=== PATIENT | male | born 1955 | race Hispanic/Latino ===

== ENCOUNTER 2021-07-03 15:15 | Emergency (ER) | payer MEDICARE, OTHER ==
[~2021-07-03] VITALS: Ht 170.2 cm; Wt 77.6 kg
[2021-07-03 16:02] LABS: BASOPHILS % (AUTO) 0.2 % (0.0-5.0); HEMATOCRIT 47.4 % (42-54); LYMPHOCYTES % (AUTO) 7.8 % (21.0-51.0); MEAN CORPUSCULAR HEMOGLOBIN 27.7 pg (27.0-33.0); MEAN CORPUSCULAR HGB CONC 32.3 g/dL (32.0-36.0); MEAN CORPUSCULAR VOLUME 85.9 fL (79-99); MONOCYTES % (AUTO) 1.3 % (3.0-13.0); NEUTROPHILS % (AUTO) 90.3 % (40.0-77.0); PLATELET COUNT (AUTO) 278 K/uL (130-400); RED BLOOD CELL COUNT(AUTO) 5.52 MIL/uL (4.50-6.20); RED CELL DISTRIBUTION WIDTH 14.4 % (11.0-15.5); WHITE BLOOD COUNT (AUTO) 8.4 K/uL (4.8-10.8)
[2021-07-03 16:04] LABS: APPEARANCE,URINE Clear (CLEAR); BILIRUBIN,URINE Negative (NEGATIVE); COLOR,URINE Yellow (YELLOW); GLUCOSE, URINE (UA) Negative (NEGATIVE); KETONES,URINE Negative (NEGATIVE); LEUKOCYTE ESTERASE ,URINE Trace (NEGATIVE); NITRATE,URINE Negative (NEGATIVE); OCCULT BLOOD,URINE Negative (NEGATIVE); PH,URINE 7.5 (5.0-8.0); PROTEIN,URINE Negative (NEGATIVE); UROBILINOGEN,URINE 0.2 mg/dL (0.2-1.0)
[2021-07-03] MEDS: KETOROLAC 15MG/ML VIAL (15MG/ML) IV ONE ×2 (16:06→16:49)
[2021-07-03] MEDS: PROMETHAZINE HCL 25 MG/ML 1ML AMPULE IM ONE ×2 (16:06→16:52)
[2021-07-03] MEDS: 0.9% NACL 500ML IV.SOLN 500 ML IV SCH ×2 (16:07→16:52)
[2021-07-03] MEDS: CYCLOBENZAPRINE HCL 10 MG TABLET PO ONE ×2 (16:10→16:49)
[2021-07-03 16:14] LABS: BACTERIA,URINE None Seen /HPF (None Seen); RBC,URINE None Seen /HPF (0-1); SQUAMOUS EPITHELIAL CELL,UR 0-2 /HPF (0-2); WBC,URINE 0-1 /HPF (0-1)
[2021-07-03 16:23] LABS: CREATININE 0.8 mg/dL (0.5-1.5); POTASSIUM 3.8 mmol/L (3.5-5.1)
[2021-07-03 16:27] LABS: BILIRUBIN,TOTAL 0.2 mg/dL (0.2-1.0); TOTAL PROTEIN, SERUM 8.4 g/dL (6.0-8.3)
[2021-07-03] MEDS ORDERED: NAPR-1180 PO (17:25)
[2021-07-03] MEDS ORDERED: CYCL10TA16 PO (17:25)
[2021-07-03] MEDS ORDERED: RIZA10TA23 PO (17:25)
[2021-07-03 18:18] VITALS: BP 119/69
== END 2021-07-03 18:18 | disposition home or self-care (01) ==
LOC: EDH 15:15
DX: G43.109 Migraine with aura, not intractable, without status migrainosus (principal); I10 Essential (primary) hypertension; Z79.899 Other long term (current) drug therapy; Z98.890 Other specified postprocedural states
CPT/HCPCS: 36415; 70450; 80053; 81001; 85025; 86140; 96372; 96374; 99285; J1885; J2550; J7040

== ENCOUNTER → 2021-07-13 | Outpatient (CLI) | payer MEDICARE ==
[~2021-07-13] MED LIST: CYCL10TA16 PO; NAPR-1180 PO; RIZA10TA23 PO
== END | disposition home or self-care (01) ==
LOC: RAH 09:34
PROVIDERS: ATTEND Nurse Practitioner Family
DX: R51.9 Headache, unspecified (principal)
CPT/HCPCS: 70551

== ENCOUNTER → 2024-06-15 | Outpatient (CLI) | payer MEDICARE ==
[~2024-06-15] MED LIST changes: +RIZA-7 PO; -RIZA10TA23 PO
[2024-06-15 10:06] LABS: BASOPHILS # (AUTO) 0.06 K/uL (0.00-0.20); BASOPHILS % (AUTO) 1.1 % (0.0-5.0); EOSINOPHILS # (AUTO) 0.17 K/uL (0.00-0.70); HEMATOCRIT 41.8 % (42-54); IMMATURE GRANULOCYTE ABSOLUTE 0.02 K/uL (0-1); LYMPHOCYTES # (AUTO) 1.5 K/uL (1.0-4.8); MEAN CORPUSCULAR HEMOGLOBIN 27.6 pg (27.0-33.0); MEAN CORPUSCULAR HGB CONC 31.6 g/dL (32.0-36.0); MEAN CORPUSCULAR VOLUME 87.4 fL (79-99); MONOCYTES # (AUTO) 0.5 K/uL (0.1-1.0); MONOCYTES % (AUTO) 8.9 % (3.0-13.0); NEUTROPHILS # (AUTO) 3.4 K/uL (1.8-7.7); NEUTROPHILS % (AUTO) 59.6 % (40.0-77.0); PLATELET COUNT (AUTO) 278 K/uL (130-400); RED BLOOD CELL COUNT(AUTO) 4.78 MIL/uL (4.50-6.20); RED CELL DISTRIBUTION WIDTH 15.1 % (11.0-15.5); WHITE BLOOD COUNT (AUTO) 5.6 K/uL (4.8-10.8)
[2024-06-15 10:14] LABS: CREATININE 0.9 mg/dL (0.5-1.3); POTASSIUM 4.8 mmol/L (3.5-5.1)
== END | disposition home or self-care (01) ==
LOC: LAB 08:52
PROVIDERS: ATTEND Urology
DX: C61 Malignant neoplasm of prostate (principal)
CPT/HCPCS: 36415; 80048; 85025

== ENCOUNTER → 2024-06-20 | Outpatient (CLI) | payer MEDICARE ==
[~2024-06-20] MED LIST changes: +IOHEXOL 350 MG/ML 100ML INFUS..BTL IV ONE
--- NOTE | 2024-06-20 11:07 | HMCIMG ---
CT UROGRAM (ABD/PEL WWO) REASON: Malignant neoplasm of prostate COMPARISON: Abdomen sonogram 12/28/2012. TECHNIQUE: Images are obtained from lung bases through the perineum before, during and after bolus IV contrast. Sequential additional acquisitions are performed at 5 minute intervals through 20 minutes, for CT urogram technique. Maximum pixel intensity projection was then performed. Contrast volume was 100 cc Omnipaque 350. FINDINGS: Lung bases are clear. There is a 3.8 x 4.6 cm low-attenuation mass present posteriorly along the posterior margin of the right lobe of the liver. This contains coarse calcifications. There is an adjacent 2.3 cm low-density nodule on the noncontrast images. This nodule has prompt arterial enhancement and is isointense by the venous phase images. The larger mass with central calcification shows minimal peripheral enhancement and remains low attenuation centrally. These are nonspecific findings. An inflammatory process is a common cause for coarse calcifications. Calcification can occur centrally in an a hemangioma as well. These lesions are both visible on previous ultrasound 12/28/2012, overall size is seen stable. There is noted at the time that the larger lesion has been biopsied. Spleen appears normal. Pancreas and adrenal glands are unremarkable. Gallbladder appears normal. There is a small hiatal hernia. Bowel loops are otherwise unremarkable with the exception of mild sigmoid diverticulosis. Prostate is enlarged at 4.6 x 5.3 cm axial dimension. Pelvic soft tissues appear otherwise unremarkable. Anterior abdominal wall is intact. Bones appear normal. Both kidneys appear unremarkable. There is no evidence of mass, stone or hydronephrosis. MRCP images show a normal appearance of the pelvicalyceal systems and ureters. There is no evidence of obstruction. There is an indentation on the base of the urinary bladder from the enlarged prostate. The urinary bladder appears otherwise unremarkable as well. IMPRESSION: 1. 2 focal lesions in the liver, one has a large coarse central calcification, these are adjacent to each other posteriorly in the right lobe. 2. Previous ultrasound shows these lesions to be not significantly changed in size. 3. Normal-appearing kidneys and ureters 4. Enlarged prostate. 5. Otherwise unremarkable exam.
--- NOTE | 2024-06-21 09:38 | HMCIMG ---
NM BONE SCAN WHOLE BODY REASON: malignant neoplasm of prostate COMPARISON: None TECHNIQUE: Routine imaging protocol was performed following injection of 24 mCi technetium 99 MDP. Whole-body and spot views were obtained. FINDINGS: There is normal osseous uptake. There are no focal areas of increased or decreased activity to suggest osseous metastatic disease. Soft tissue activity appears normal as well. IMPRESSION: 1. Normal bone scan, no evidence of osseous metastatic disease.
== END | disposition home or self-care (01) ==
LOC: RAH 07:49
PROVIDERS: ATTEND Urology
DX: C61 Malignant neoplasm of prostate (principal); N40.0 Benign prostatic hyperplasia without lower urinary tract symptoms; K44.9 Diaphragmatic hernia without obstruction or gangrene; K76.9 Liver disease, unspecified; K57.30 Diverticulosis of large intestine without perforation or abscess without bleeding
CPT/HCPCS: 78306; 74178; Q9967; A9503

== ENCOUNTER 2024-11-30 11:39 | Emergency (ER) | payer MEDICARE ==
[~2024-11-30] VITALS: Ht 170.2 cm; Wt 77.6 kg
[~2024-11-30 11:39] MED LIST changes: -IOHEXOL 350 MG/ML 100ML INFUS..BTL IV ONE
--- NOTE | 2024-11-30 12:11 | ERN ---
ED Note History of Present Illness Stated Complaint: ABDOMINAL PAIN Chief Complaint: Abdominal Pain Time Seen by MD: 11:43 Dictation: Patient is a 69-year-old male with a past medical history of hypertension, diverticulitis prostate cancer, status post prostatectomy done 3 weeks ago. He presents to the emergency department complaining of left lower abdomen pain, patient is afraid to have diverticulitis since he was diagnosed previously with the diverticulitis and treated with oral antibiotics. Allergies: Coded Allergies: No Known Allergies (Unverified Allergy, Unknown, 07/03/21) Home Meds Active Scripts Cyclobenzaprine HCl (Flexeril) 10 Mg Tab, 10 MG PO BID, #40 TAB Prov:PAT BROUSSARD 07/03/21 Naproxen (Naprosyn) 500 Mg Tablet, 500 MG PO BIDPC, #60 TAB Prov:PAT BROUSSARD 07/03/21 Rizatriptan Benzoate (Maxalt Dam[employer] Worker) 10 Mg Tab.rapdis, 10 MG PO AD, #15 TAB Prov:PAT BROUSSARD 07/03/21 Past Medical History Past Medical History: Cancer, Hypertension, Other Additional Past Medical Hx: LIVER MASS FOR 20 YEARS, POLIO, PROSTATE CA Surgical History: Other Review of System Dictation NEGATIVE EXCEPT PER HPI Constitutional: Negative for fever,chills, and weight loss Eyes: Negative for injury, pain,redness, and discharge ENT: Negative for injury,pain or swelling Cardiovascular: denies chest pain, palpitations, and edema Respiratory: Negative for shortness of breath, cough, and wheezing, Abdomen/GI: Negative for abdominal pain, nausea, vomiting, diarrhea, and constipation Back: Negative for injury and pain : Left lower abdominal pain MS/Extremity: Negative for injury and deformity Skin: Negative for rash, and discoloration Neuro: Negative for headache, weakness, numbness, tingling, and seizure Psych: Negative for suicide ideation, homicidal ideation, and hallucinations Initial Vital Sign VS Vital Signs Date Time Temp Pulse Resp B/P (MAP) Pulse Ox O2 Delivery O2 Flow Rate FiO2 11/30/24 11:41 98.8 89 16 123/83 98 Room Air 0 11/30/24 15:26 21 Physical Exam Dictation General: awake, alert, NAD Head/Face: Normocephalic, atraumatic Eyes: PERRL, EOMI, vision at baseline ENT: oral cavity clear, TMs clear, no signs of infection Neck: Trachea midline, supple, no nuchal rigidity Cardiovascular: RRR, normal S1/S2, No MRGs, no JVD Respiratory: CTAB, no respiratory distress, No rales or wheezes Abdomen: Soft , left lower quadrant tenderness Skin: Warm, dry, normal turgor, no rash MS/Extremity: Pulses equal, no cyanosis, neurovascular intact, FROM Neuro: COAx4, GCS 15, strength 5/5, CN 2-12 intact, normal cerebellar exam, normal gait, Psych: Normal behavior, mood, and affect normal Results (Laboratory/Radiology) Laboratory/Radiology Laboratory Tests Test 11/30/24 12:11 11/30/24 12:14 Urine Color COLORLESS (YELLOW) Urine Appearance CLEAR (CLEAR) Urine pH 7.0 (5.0-8.0) Urine Specific [place] 1.010 (1.001-1.031) Urine Protein NEGATIVE mg/dL (NEGATIVE) Urine Glucose (UA) NEGATIVE mg/dL (NEGATIVE) Urine Ketones NEGATIVE mg/dL (NEGATIVE) Urine Occult Blood LARGE (NEGATIVE) H Urine Nitrate NEGATIVE (NEGATIVE) Urine Bilirubin NEGATIVE mg/dL (NEGATIVE) Urine Urobilinogen 0.2 mg/dL (0.2-1.0) Urine Leukocyte Esterase 25 Thuy/uL (NEGATIVE) H Urine RBC TNTC /HPF (0-1) H Urine WBC 2-5 /HPF (0-1) H Urine Bacteria None /HPF (None Seen) White Blood Count 7.3 K/uL (4.8-10.8) Red Blood Count 4.75 MIL/uL (4.50-6.20) Hemoglobin 13.6 g/dL (14.0-18.0) L Hematocrit 41.0 % (42-54) L Mean Corpuscular Volume 86.3 fL (79-99) Mean Corpuscular Hemoglobin 28.6 pg (27.0-33.0) Mean Corpuscular Hemoglobin Concent 33.2 g/dL (32.0-36.0) Red Cell Distribution Width 14.3 % (11.0-15.5) Platelet Count 266 K/uL (130-400) Mean Platelet Volume 9.4 fL (7.5-10.5) Immature Granulocyte % (Auto) 0.4 % (0-1) Neutrophils (%) (Auto) 75.0 % (40.0-77.0) Lymphocytes (%) (Auto) 14.9 % (21.0-51.0) L Monocytes (%) (Auto) 7.6 % (3.0-13.0) Eosinophils (%) (Auto) 1.4 % (0.0-8.0) Basophils (%) (Auto) 0.7 % (0.0-5.0) Neutrophils # (Auto) 5.5 K/uL (1.8-7.7) Lymphocytes # (Auto) 1.1 K/uL (1.0-4.8) Monocytes # (Auto) 0.6 K/uL (0.1-1.0) Eosinophils # (Auto) 0.10 K/uL (0.00-0.70) Basophils # (Auto) 0.05 K/uL (0.00-0.20) Absolute Immature Granulocyte (auto 0.03 K/uL (0-1) Nucleated Red Blood Cells 0.0 % (0.0-0.19) Sodium Level 139 mmol/L (136-145) Potassium Level 4.7 mmol/L (3.5-5.1) Chloride Level 101 mmol/L (101-111) Carbon Dioxide Level 32 mmol/L (21-32) Blood Urea Nitrogen 26 mg/dL (7-18) H Creatinine 0.7 mg/dL (0.5-1.3) Glomerular Filtration Rate Calc 99 mL/min (>90) Random Glucose 109 mg/dL (70-105) H Total Calcium 10.0 mg/dL (8.5-10.1) C-Reactive Protein, Quantitative 61.50 mg/L (0.5-3.0) H ED Course ED Course Orders Procedure Category Date Status Time Urinalysis Profile LAB 11/30/24 Complete 12:02 Cbc With Differential LAB 11/30/24 Complete 12:02 Basic Metabolic Panel LAB 11/30/24 Complete 12:02 Crp Quantitative LAB 11/30/24 Complete 12:04 Ct Abdomen/Pelvis CT 11/30/24 Resulted W/Contrast 12:38 Iohexol (Omnipaque) PHA 11/30/24 Complete 13:58 Ceftriaxone 1g Vial PHA 11/30/24 In Process (Rocephine 1g Inj) 15:30 Current Medications Medications (Trade) Dose Ordered Sig/Tanisha Route PRN Reason Start Time Stop Time Status Last Admin Dose Admin Ceftriaxone Sodium (ROCEphine 1G INJ) 1 gm ONCE IV 11/30/24 15:30 11/30/24 19:30 11/30/24 15:29 Iohexol (Omnipaque) 75 ml STK-MED ONCE IV 11/30/24 13:58 11/30/24 13:58 DC Vital Signs Date Time Temp Pulse Resp B/P (MAP) Pulse Ox O2 Delivery O2 Flow Rate FiO2 11/30/24 15:26 86 18 116/67 98 Room Air* 0 21 11/30/24 11:41 98.8 89 16 123/83 98 Room Air 0 Medical Decision Making MDM 69-year-old male with a history of diverticulitis, prostate cancer status prostatectomy 3 weeks ago who presented to the ER complaining of left lower quadrant abdominal pain. Diverticulitis Abdominal pain Possible UTI Plan: UA CT abdomen and pelvis with contrast/oral/IV 1. Sigmoid and descending colon diverticulitis without evidence for complication. 2. 7.7 x 4.3 cm loculated fluid collection anterior to urinary bladder, likely postoperative seroma versus abscess. Clinical correlation is advised. 3. Two hepatic lesions with calcifications in segment VII, suspicious for metastatic disease. 4. Bilateral inguinal hernias and umbilical hernia. 5. Subcutaneous emphysema in bilateral inguinal regions and left anterior abdominal wall, likely postoperative. Reports that he has history of liver mass and has been followed by his oncologist. He agrees with the started oral antibiotics for diverticulitis, I explained the patient that looked like he has diverticulitis not complicated, oral antibiotics he will be option for now, he must follow up with the PCP in next 48 hours. DX & DISP Disposition: Discharge Departure Impression: Primary Impression: Abdominal pain Additional Impressions: UTI (urinary tract infection), Diverticulitis Condition: Stable Scripts Metronidazole (Metronidazole) 500 Mg Tablet 1 TAB PO TID for 14 Days, #42 TAB 0 Refills Prov: LIANNE SUTTON MD 11/30/24 Ciprofloxacin HCl (Cipro) 500 Mg Tablet 1 TAB PO BID for 14 Days, #28 TAB 0 Refills Prov: LIANNE SUTTON MD 11/30/24 Additional Instructions: RETURN TO ER FOR ANY ACUTE OR WORSENING SYMPTOMS. FOLLOW-UP IN 1-2 DAYS WITH PRIMARY PROVIDER FOR RECHECK OF TODAY'S SYMPTOMS. Referrals: KATELYNN EASLEY (PCP) LIANNE SUTTON MD Nov 30, 2024 12:11
[2024-11-30 12:25] LABS: APPEARANCE,URINE CLEAR (CLEAR); GLUCOSE, URINE (UA) NEGATIVE (NEGATIVE); LEUKOCYTE ESTERASE ,URINE 25 Leu/uL (NEGATIVE); NITRATE,URINE NEGATIVE (NEGATIVE); OCCULT BLOOD,URINE LARGE (NEGATIVE)
[2024-11-30 12:26] LABS: ADD UA MICROSCOPIC YES
[2024-11-30 12:28] LABS: IMMATURE GRANULOCYTE ABSOLUTE 0.03 K/uL (0-1); NUCLEATED RED BLOOD CELLS 0.0 % (0.0-0.19); PLATELET COUNT (AUTO) 266 K/uL (130-400); RED BLOOD CELL COUNT(AUTO) 4.75 MIL/uL (4.50-6.20); RED CELL DISTRIBUTION WIDTH 14.3 % (11.0-15.5); WHITE BLOOD COUNT (AUTO) 7.3 K/uL (4.8-10.8)
[2024-11-30 12:36] LABS: CREATININE 0.7 mg/dL (0.5-1.3); GLOMERULAR FILTR. RATE CALC 99.0 mL/min (>90); GLUCOSE,RANDOM 109.0 mg/dL (70-105); SODIUM SERUM 139.0 mmol/L (136-145); UREA NITROGEN, BLOOD 26.0 mg/dL (7-18)
[2024-11-30] MEDS ORDERED: IOHEXOL-350 75 ML VIAL IV ONE (13:58)
--- NOTE | 2024-11-30 15:52 | HMCIMG ---
EXAM: CT Abdomen and Pelvis with IV contrast CLINICAL HISTORY: possible diverticulitis/llq pain he is s/p prostactectomy 3 weeks ago TECHNIQUE: Axial computed tomography images of the abdomen and pelvis with intravenous contrast. CONTRAST: with intravenous contrast. COMPARISON: None provided. FINDINGS: LUNG BASES: The lung bases appear clear. No pleural effusions are seen. LIVER: Few (2) cystic lesions with internal calcifications are seen in the segment VII of the right lobe of the liver, concerning for metastasis due to prostate mailgnancy. Recommend contrast-enhanced MR imaging and possibly tissue sampling for histopathologic correlation. GALLBLADDER AND BILE DUCTS: The gallbladder appears within normal limits. No radioopaque gallstones are seen. No biliary ductal dilatation is evident. PANCREAS: Unremarkable. SPLEEN: Unremarkable. ADRENAL GLANDS: Unremarkable. KIDNEYS, URETERS, AND BLADDER: The wall of the urinary bladder appears thickened (5 mm), possibly due to cystitis. Minimal perinephric fluid noted. The kidneys appear within normal limits. There is no hydronephrosis or hydroureter. No urinary calculi are seen. STOMACH AND BOWEL: Multiple diverticula are seen arising from the sigmoid and descending colon with surrounding fat stranding, suggestive of diverticulitis. Small hiatal hernia noted. No evidence of bowel obstruction. No evidence suggesting enteritis. APPENDIX: No evidence of acute appendicitis on CT examination. PERITONEUM: Approximately 15 mm and 7 mm sized defect is seen in the left and right inguinal regions respectively, through which fat have herniated through. Aproximately 5 mm sized defect is seen in umbilical region. Mild ascites noted. Approximately 7.7 x 4.3 cm sized loculated non enhancing fluid collection is seen anterior to urinary bladder. Fatty atrophy of left psoas muscle noted. Few air foci are seen in the subcutaneous plane in the bilateral inguinal regions and in the left anterior abdominal wall. No free air. LYMPH NODES: No lymphadenopathy is evident. REPRODUCTIVE: Prostate is surgically absent. VASCULATURE: No evidence of abdominal aortic aneurysm. BONES: No aggressive appearing osseous lesion. No acute osseous pathology evident. IMPRESSION: 1. Sigmoid and descending colon diverticulitis without evidence for complication. 2. 7.7 x 4.3 cm loculated fluid collection anterior to urinary bladder, likely postoperative seroma versus abscess. Clinical correlation is advised. 3. Two hepatic lesions with calcifications in segment VII, suspicious for metastatic disease. 4. Bilateral inguinal hernias and umbilical hernia. 5. Subcutaneous emphysema in bilateral inguinal regions and left anterior abdominal wall, likely postoperative. /[place]
[2024-11-30] MEDS ORDERED: METR-172 PO (16:16)
[2024-11-30] MEDS ORDERED: CIPR-278 PO (16:16)
[2024-11-30 16:25] VITALS: BP 118/65; PULSE 81; RESP 18; TEMP 98.7; O2SAT 99
== END 2024-11-30 16:24 | disposition home or self-care (01) ==
LOC: EDH 11:39
DX: N39.0 Urinary tract infection, site not specified (principal); K57.32 Diverticulitis of large intestine without perforation or abscess without bleeding; R10.30 Lower abdominal pain, unspecified; I10 Essential (primary) hypertension; Z79.899 Other long term (current) drug therapy
CPT/HCPCS: 99285; 74177; 96365; 80048; 85025; 86140; 81001; 36415; J0696; Q9967